=== PATIENT | female | born 1965 | race Two or more races ===

== ENCOUNTER 2017-08-04 10:55 | Emergency (ER) | payer BC ==
[2017-08-04 11:09] VITALS: BP 132/106
[2017-08-04] MEDS ORDERED: Ketorolac 60 MG/2 ML SDV IM ONE (11:19)
[2017-08-04] MEDS ORDERED: Diphtheria,Pertussis(Acell),Tetanus Vaccine 0.5 ML SDV IM ONE (11:19)
--- NOTE | 2017-08-04 11:25 | EDM.PDOC ---
ED HPI GENERAL MEDICAL PROBLEM - General Chief Complaint: Bite:Animal, Insect Stated Complaint: DOG BITE Time Seen by Provider: 08/04/17 11:09 Source of Information: Reports: Patient History Limitations: Reports: No Limitations - History of Present Illness INITIAL COMMENTS - FREE TEXT/NARRATIVE: 51-year-old female presents for evaluation treatment of injury to the right hand ventral middle finger. Injury occurred prior to arrival in the ER. Patient reports that she has a mixed breed dog which was about 15 pounds. Reports that she was trying to get a candy wrapper out of its mouth. States that it bit her right finger. Reports that the dog's immunizations are up to date. She applied a bandage applied pressure and the bleeding has now subsided. Reports significant pain to the right hand distal middle finger. No decreased range of motion, numbness or tingling. She is unsure of her last tetanus. Onset: Today Right Hand Pain Score (Numeric/FACES): 8 - Related Data Allergies Allergy/AdvReac Type Severity Reaction Status Date / Time iodine Allergy Anaphylactic Verified 08/04/17 11:04 Shock shellfish derived Allergy Anaphylactic Verified 08/04/17 11:04 Shock Home Meds: Home Meds Amoxicillin/Potassium Clav [Augmentin 875-125 Tablet] 1 each PO BID #20 tablet 08/04/17 [Rx] Past Medical History Musculoskeletal History: Reports: Neck Pain, Chronic Social & Family History - Tobacco Use Smoking Status *Q: Current Some Day Smoker Years of Tobacco use: 15 - Alcohol Use Days Per Week of Alcohol Use: 0 Number of Drinks Per Day: 0 Total Drinks Per Week: 0 - Recreational Drug Use Recreational Drug Use: No Drug Use in Last 12 Months: No ED ROS GENERAL - Review of Systems Review Of Systems: See Below Musculoskeletal: Reports: Hand Pain (right hand middle distal finger) Skin: Reports: Wound (right hand middle finger ) Neurological: Denies: Numbness ED EXAM, ANIMAL BITE - Physical Exam Exam: See Below Exam Limited By: No Limitations General Appearance: Alert, WD/WN, No Apparent Distress Respiratory/Chest: No Respiratory Distress Cardiovascular: Normal Peripheral Pulses Peripheral Pulses: 2+: Radial (L), Radial (R) Extremities: Normal Range of Motion, Other (tenderness to palpation of the right hand middle finger ) Neurological: Alert, Oriented, Normal Cognition Psychiatric: Normal Affect, Normal Mood Skin Exam: Normal Color, Warm/Dry, Other (approximately 1cm in diameter subcutaneousskin avulsion to the right hand ventral dorsal middle finger) Course - Vital Signs Last Recorded V/S: Last Vital Signs Temp 36.6 C 08/04/17 11:05 Pulse 72 08/04/17 11:05 Resp BP 132/106 H 08/04/17 11:05 Pulse Ox 100 08/04/17 11:05 - Orders/Labs/Meds Orders: Active Orders 24 hr Category Date Time Status Vaccines to be Administered [RC] PER UNIT ROUTINE Care 08/04/17 11:19 Ordered Meds: Medications Discontinued Medications Generic Name Dose Route Start Last Admin Trade Name Laverne PRN Reason Stop Dose Admin Diphtheria/Tetanus/Acell Pertussis 0.5 ml 08/04/17 11:19 Adacel IM 08/04/17 11:20 .ONCE ONE Ketorolac Tromethamine 60 mg 08/04/17 11:19 Toradol IM 08/04/17 11:20 ONETIME ONE - Re-Assessments/Exams Free Text/Narrative Re-Assessment/Exam: 08/04/17 11:21 Puncture wound to the right hand distal, ventral middle finger. Avulsion of the skin present. This wound is not suturable. I will start her on Augmentin. She is asking for pain medication. I will give her toradol. Also provide her with a splint to protect the wound and have nursing staff dress it. We will give her tetanus here. Nursing staff is reporting the dog bite. Discharge instructions as documented. Departure - Departure Time of Disposition: 11:22 Disposition: Home, Self-Care 01 Condition: Good Clinical Impression: Dog bite, Avulsion of skin of finger - Discharge Information Prescriptions: Amoxicillin/Potassium Clav [Augmentin 875-125 Tablet] 1 each PO BID #20 tablet Referrals: Corrine Marcos NP [Primary Care Provider] - Forms: ED Department Discharge Additional Instructions: [id number] Tylenol or Motrin as needed for pain. Keep the wound dressed. you may apply a topical antibacterial ointment such as Neosporin or bacitracin. you may also use Vaseline as you are on oral antibiotics. This will help with some of the pain by keeping it covered. Then apply a dressing and use the finger splint to help protect the wound. Follow-up with your primary care provider as needed. Augmentin 1 tablet twice a day for 10 days. Take this medication with food. Recommend doing yogurt or probiotic as this medication to be hard on the stomach and cause nausea, diarrhea and upset stomach. your tetanus was updated today. This is good for the next 10 years. Please return to the ER if your symptoms change or worsen. - My Orders Last 24 Hours: My Active Orders 08/04/17 11:19 Vaccines to be Administered [RC] PER UNIT ROUTINE - Assessment/Plan Last 24 Hours: My Active Orders 08/04/17 11:19 Vaccines to be Administered [RC] PER UNIT ROUTINE
== END 2017-08-04 11:42 | disposition home or self-care (01) ==
LOC: JD.ED 10:55
DX: S61.252A Open bite of right middle finger without damage to nail, initial encounter (principal); F17.210 Nicotine dependence, cigarettes, uncomplicated; Z91.013 Allergy to seafood; Z23 Encounter for immunization; W54.0XXA Bitten by dog, initial encounter
CPT/HCPCS: 90471; 90715; 96372; 99283; J1885

== ENCOUNTER 2019-04-10 07:24 | Day surgery (SDC) | payer OTHER ==
[~2019-04-10 07:24] MED LIST: Lactated Ringers 1,000 ML IV SCH; Lidocaine 1% 4 ML ONE; Lidocaine 1%/Sod Bicarbonate in NS 8.4% 1 ML Syringe IDERM PRN; Midazolam 1 MG/ML 2 ML SDV ONE; Ondansetron 4 MG/2 ML SDV ONE; Propofol 200 MG/20 ML SDV ONE; Rocuronium 50 MG/5 ML Vial ONE; Sodium Chloride 0.9% 10 ML Syringe FLUSH PRN; ceFAZolin 1 GM Vial ONE; fentaNYL 250 MCG/5 ML SDV ONE
--- NOTE | 2019-04-10 07:39 | PCM.PREANE ---
Preanesthetic Assessment - Anesthesia/Transfusion/Family Hx Anesthesia History: Prior Anesthesia Without Reaction Family History of Anesthesia Reaction: No Transfusion History: No Prior Transfusion(s) - Review of Systems General: No Symptoms Pulmonary: No Symptoms Cardiovascular: Dyspnea on Exertion Gastrointestinal: Abdominal Pain Neurological: No Symptoms Other: Reports: None - Physical Assessment NPO Status Date: 04/09/19 NPO Status Time: 00:00 Pulse: 74 O2 Sat by Pulse Oximetry: 96 Respiratory Rate: 16 Blood Pressure: 123/50 Temperature: 36.8 C Height: 1.57 m Weight: 79.379 kg ASA Class: 2 Mental Status: Alert & Oriented x3 Airway Class: Mallampati = 1 Dentition: Reports: Missing Tooth/Teeth, Caries Thyro-Mental Finger Breadths: 3 Mouth Opening Finger Breadths: 2 ROM/Head Extension: Limited/Partial Lungs: Clear to Auscultation, Normal Respiratory Effort Cardiovascular: Regular Rate, Regular Rhythm - Lab Values: on chart - Imaging/EKG Impressions: on chart - Allergies Allergies/Adverse Reactions: Allergies Allergy/AdvReac Type Severity Reaction Status Date / Time celecoxib Allergy Cannot Verified 04/09/19 15:18 Remember poison oak extract Allergy Cannot Verified 04/09/19 15:18 Remember shellfish derived Allergy Anaphylactic Verified 04/09/19 15:18 Shock - Blood Blood Available: Yes Product(s) Available: PRBC - Anesthesia Plan Pre-Op Medication Ordered: None - Acknowledgements Anesthesia Type Planned: General Anesthesia Pt an Appropriate Candidate for the Planned Anesthesia: Yes Alternatives and Risks of Anesthesia Discussed w Pt/Guardian: Yes Pt/Guardian Understands and Agrees with Anesthesia Plan: Yes PreAnesthesia Questionnaire HEENT History: Reports: Sinusitis Cardiovascular History: Reports: None Respiratory History: Reports: Bronchitis, Recurrent Gastrointestinal History: Reports: GERD, Other (See Below) Other Gastrointestinal History: abnormal LFTs Genitourinary History: Reports: None [employer] History: Reports: , Other (See Below) Other OB/BYN History: pelvic pain, cervical polyp, left and right breast mass, ovarian cyst, Musculoskeletal History: Reports: Back Pain, Chronic, Neck Pain, Chronic, Osteoarthritis Other Musculoskeletal History: left shoulder pain, muscle spasms, AC joint bone spurs, left shoulder adhesive capsulitis, left bicep tendintis, lumbago, sciatica, left should RC impingment, L RC tear, left shoulder surgery, right wrist repair Neurological History: Reports: Other (See Below) Other Neuro History: OA of neck with bulging discs, left upper extremity numbness Psychiatric History: Reports: None Endocrine/Metabolic History: Reports: Obesity/BMI 30+ Hematologic History: Reports: None Immunologic History: Reports: None Oncologic (Cancer) History: Reports: None Dermatologic History: Reports: Urticaria - Past Surgical History Head Surgeries/Procedures: Reports: None HEENT Surgical History: Reports: None Cardiovascular Surgical History: Reports: None Respiratory Surgical History: Reports: None GI Surgical History: Reports: None Endocrine Surgical History: Reports: None Neurological Surgical History: Reports: None Musculoskeletal Surgical History: Reports: Shoulder Surgery Dermatological Surgical History: Reports: None - SUBSTANCE USE Smoking Status *Q: Current Every Day Smoker Tobacco Use Within Last Twelve Months: Cigarettes Second Hand Smoke Exposure: No Days Per Week of Alcohol Use: 1 Number of Drinks Per Day: 1 Total Drinks Per Week: 1 Recreational Drug Use History: No - HOME MEDS Home Medications: Home Meds traMADol HCl [Tramadol HCl] 50 mg PO TID 04/09/19 [History] - CURRENT (IN HOUSE) MEDS Current Meds: Current Medications Lactated Ringer's (Ringers, Lactated) 1,000 mls @ 125 mls/hr IV ASDIRECTED LEA Stop: 04/10/19 23:00 Lidocaine/Sodium Bicarbonate (Buffered Lidocaine 1% In Ns 8.4%) 0.25 ml IDERM ONETIME PRN PRN Reason: Prior to IV Start Stop: 04/10/19 18:00 Sodium Chloride (Saline Flush) 10 ml FLUSH ASDIRECTED PRN PRN Reason: Keep Vein Open Stop: 04/10/19 18:00 Discontinued Medications Cefazolin Sodium (Ancef) Confirm Administered Dose 2 gm .ROUTE .STK-MED ONE Stop: 04/10/19 07:23 Fentanyl (Sublimaze) Confirm Administered Dose 250 mcg .ROUTE .STK-MED ONE Stop: 04/10/19 07:17 Lactated Ringer's (Ringers, Lactated) 1,000 mls @ 125 mls/hr IV ASDIRECTED LEA Stop: 03/17/19 23:00 Lidocaine HCl (Xylocaine-Mpf 1%) Confirm Administered Dose 4 mls @ as directed .ROUTE .STK-MED ONE Stop: 04/10/19 07:17 Lidocaine/Sodium Bicarbonate (Buffered Lidocaine 1% In Ns 8.4%) 0.25 ml IDERM ONETIME PRN PRN Reason: Prior to IV Start Stop: 03/17/19 18:00 Midazolam HCl (Versed 1 Mg/Ml) Confirm Administered Dose 2 mg .ROUTE .STK-MED ONE Stop: 04/10/19 07:17 Ondansetron HCl (Zofran) Confirm Administered Dose 4 mg .ROUTE .STK-MED ONE Stop: 04/10/19 07:16 Propofol (Diprivan 20 Ml) Confirm Administered Dose 200 mg .ROUTE .STK-MED ONE Stop: 04/10/19 07:17 Rocuronium [place] (Zemuron) Confirm Administered Dose 50 mg .ROUTE .STK-MED ONE Stop: 04/10/19 07:16 Sodium Chloride (Saline Flush) 10 ml FLUSH ASDIRECTED PRN PRN Reason: Keep Vein Open Stop: 03/17/19 18:00
[2019-04-10] MEDS ORDERED: Bupivacaine 0.5% 30 ML SDV ONE (07:54)
[2019-04-10] MEDS ORDERED: Lidocaine 1% with EPINEPHrine 1:100,000 20 ML MDV ONE ×2 (07:54→12:50)
[2019-04-10] MEDS ORDERED: Sodium Chloride 0.9% 50 ML SDV ONE (07:54)
[2019-04-10] MEDS ORDERED: Lactated Ringers 1,000 ML ONE ×2 (08:30→09:34)
[2019-04-10] MEDS ORDERED: Dexamethasone 4 MG/ML 5 ML MDV ONE ×2 (08:40→08:41)
[2019-04-10] MEDS ORDERED: HYDROmorphone 0.5 MG/0.5 ML Syringe ONE ×2 (08:42)
[2019-04-10] MEDS ORDERED: fentaNYL 250 MCG/5 ML SDV ONE (08:50)
[2019-04-10] MEDS ORDERED: Ketorolac 30 MG/ML SDV ONE (09:34)
--- NOTE | 2019-04-10 10:49 | PCM.POSTAN ---
POST ANESTHESIA ASSESSMENT - MENTAL STATUS Mental Status: Alert, Oriented - VITAL SIGNS Pulse Rate: 86 SaO2: 98 Resp Rate: 15 Blood Pressure: 107/84 Temperature: 36.7 C - RESPIRATORY Respiratory Status: Respiratory Rate WNL, Airway Patent, O2 Saturation Stable, Supplemental Oxygen - CARDIOVASCULAR CV Status: Pulse Rate WNL, Blood Pressure Stable - GASTROINTESTINAL GI Status: No Symptoms - PAIN Pain Score: 2 - POST OP HYDRATION Hydration Status: Adequate & Stable - OBSERVATIONS Free Text/Narrative:: no anesthesia complications noted
--- NOTE | 2019-04-10 10:59 | PCM.OPNOTE ---
- General Post-Op/Procedure Note Date of Surgery/Procedure: 04/10/19 Operative Procedure(s): Laparoscopic-assisted vaginal hysterectomy, bilateral salpingo-oophorectomy, tension-free transvaginal mid urethral sling and cystoscopy. Findings: Retroverted uterus that is overall normal in appearance. Fallopian tubes normal in appearance bilaterally. Left ovary atrophic but otherwise normal in appearance. Right ovary with blue-black ovarian cyst measuring approximately 2 cm in size. The remainder of the ovary was overall normal. The visualized portions of the intestines, liver and gallbladder were normal. Pre Op Diagnosis: Female pelvic pain, abnormal uterine bleeding, fibroid uterus and stress urinary incontinence Post-Op Diagnosis: Same Anesthesia Technique: General ET Tube Primary Surgeon: Heber Burgos Anesthesia Provider: Patrick Cm Revising Clerk: Bubba Newell Revising Clerk: German Gary (PA student) Reason Revising Clerk Was Necessary: Patient's safety and reduction of morbidity and mortality Role of Revising Clerk: Laparoscopic skills for the surgery and retraction for visualization Pathology: Cervix, uterus, bilateral fallopian tubes and bilateral ovaries Fluid Replacement, Intraop: 2,000 Output, Urine Amount: 200 EBL in mLs: 100 Complications: None Condition: Good Free Text/Narrative:: Length of procedure: 96 minutes Procedure in detail: The patient was seen in the preoperative holding area and risks, benefits, indications, and alternatives of the procedure were reviewed with the patient and she desired to proceed with a laparoscopic assisted vaginal hysterectomy, bilateral salpingectomy, possible unilateral or bilateral salpingo-oophorectomy, transvaginal mid-urethral sling and possible total abdominal hysterectomy. Consents were reviewed. The patient was taken back to the OR and given general anesthesia with an endotracheal tube which was placed without difficulty. She was placed in dorsal lithotomy position using Yellofin stirrups. She was prepped and draped in normal sterile fashion. A Jean catheter was placed without difficulty. Attention was then turned to her umbilicus and was injected with 0.5% Marcaine and a 5 mm stab incision was made with a scalpel and a Veress needle was then inserted through the incision. The gas was turned on, with an opening pressure of 6 mmHg. Pneumoperitoneum was continued until 15 mmHg pressure. A 5 mm trocar was then inserted under direct visualization through the incision without difficulty. Attention was then turned to the patient's right lower quadrant where an avascular space approximately snf between the ASIS and the umbilicus was identified. Local anesthetic was injected and a 5 mm incision was made with a scalpel. A 5 mm trocar was then inserted under direct visualization of the laparoscope. Attention was then turned to the left lower quadrant, where again an avascular portion of the abdominal wall was identified approximately snf between the ASIS and the umbilicus. Local anesthetic was injected and a scalpel was used to make a 5 mm incision. A 5 mm trocar was inserted under direct visualization with the laparoscope. Attention was then turned to the pelvis where the uterus was visualized and noted be normal in appearance with normal appearing bilateral fallopian tubes and normal-appearing left ovary. The right ovary was noted to have a blueblack cyst present within the ovary approximately 2 cm in size The atraumatic grasper was then removed from the right lower trocar and a Enseal vessel sealing device was introduced and was used to transect the left infundibulopelvic ligament. The remainder of the IP ligament was cauterized and transected using the Enseal vessel sealing device. The left round ligament was then transected using the Enseal vessel sealing device. The left side of the uterus and broad ligament were then transected using the Enseal vessel sealing device until the level of the uterovesical peritoneal reflection. This was repeated on the patient's right side. The right infundibulopelvic ligament was cauterized and transected the Enseal vessel sealing device. The remainder of the infundibulum pelvic ligament was then transected using Enseal vessel sealing device. The right round ligament was transected using Enseal vessel sealing device and the broad ligament was transected to the level of the uterovesical peritoneal reflection. The pelvis was then inspected for hemostasis at this time and hemostasis was noted. All instruments were removed from the abdomen. Attention was then turned to the patient's perineum where a weighted speculum was placed into the vagina and a Pooler retractor was used to visualize the cervix. The cervix was grasped with a double-tooth tenaculum. The cervical reflection point was then injected circumferentially with 0.25% lidocaine with epinephrine. The cervix was then circumferentially incised with a scalpel. The bladder was then dissected off the pubovesical cervical fascia anteriorly with Metzenbaum scissors. The same procedure was performed posteriorly and the posterior cul-de-sac was entered sharply without difficulty using Metzenbaum scissors. At this point, an Enseal vessel sealing device was placed over the uterosacral ligaments on the patient's left side. These were cauterized and ligated with the device. This was repeated on the patient's right side. Hemostasis was assured. The cardinal ligaments were then clamped on both sides using the Enseal vessel sealing device, cauterized and transected with the device. The uterine artery on the patient's right side side and the remainder of the broad ligament were then serially clamped with the Enseal vessel sealing device, cauterized and transected with the device. Excellent hemostasis was noted. The cervix and uterus was able to be delivered at this time. The posterior vaginal cuff was closed with running locked sutures of 0 Monocryl. There is noted be bleeding from the uterine veins on the patient's left side that were cauterized using the Enseal vessel sealing device. Hemostasis was assured at this time. The vaginal cuff was then closed in a horizontal fashion using running locked sutures with 0 Monocryl suture. All instruments were removed from the vagina. Attention was then turned to the abdomen where a laparoscope was inserted and was used to check for hemostasis. Hemostasis was noted at this time. Attention was again turned to the pelvis and an Allis clamp was placed approximately 2 cm below the urethral opening. A second Allis clamp was placed 2 cm below the first Allis clamp. The vaginal mucosa was then injected with 0.25% lidocaine with epinephrine. A scalpel was used to make a midline incision through the vaginal mucosa. Marquez scissors were used to dissect the vaginal mucosa from the underlying tissue on the patient's right side. This was carried out to the pubic rami. This was repeated on the left side and completed without difficulty. Attention was then turned to the patient's mons and the skin was injected with 0.25% lidocaine with epinephrine and bilateral sides up proximally 2 cm from midline. A stab incision was made with a scalpel bilateral sides without complications. The urethral sling hook was then used on the patient's left side and placed through the stab incision and with a finger in the vagina behind the pubic rami, the tip of the hook was felt and then directed out through the midline vaginal incision. The transvaginal tape was attached to the hook and pulled through the incision. Attention was then turned to the patient's right side where, again, the transobturator pigtail hook was placed through the stab incision and with a finger in the vagina was directed posterior to the lateral pubic rami and directed through the vaginal incision. The other end of the tape was attached to the hook and pulled through , making sure that the tape was flat on the patient's incision. A cystoscopy was performed that did not show any damage to the bladder. Bilateral urine effluxed from the ureters was noted. A Marquez scissors was used to allow for a tension-free placement of the tape. The ends of the tape were then cut at the level of the skin on the patient on both sides at the stab incisions. Attention was then turned to the midline incision, which was closed using 3-0 Monocryl in a running fashion. The skin incisions were closed using Dermabond glue. The case was complete at this time. The gas was evacuated from the peritoneum and trocars removed. The laparoscopic port sites were closed using 4-0 Monocryl suture and Dermabond. The patient was awoken from general anesthesia and taken to the PACU for recovery in stable condition. She will be discharged to home once she is able to meet all postoperative milestones including tolerating small amount of oral intake and liquids, ambulate without difficulty, her pain controlled with oral medications and able to void without difficulty. She will follow-up in the clinic in 2 weeks or earlier as needed. Sponge, lap, needle, and instrument counts were correct x 2. Review of images from case [id number]: Error image IMG 002: Error image IMG 003: Grossly normal-appearing visualized portion of the liver edge and gallbladder IMG 004: Grossly normal-appearing liver edge and portion of stomach IMG 005: Hemostatic portion of the left pelvis and cul-de-sac IMG 006: Hemostatic portion of the right pelvis and cul-de-sac Heber Burgos M.D. 10:58 AM 04/10/2019
[2019-04-10] MEDS: fentaNYL 100 MCG/2 ML SDV IVPUSH PRN ×2 (11:07→14:43)
[2019-04-10] MEDS: HYDROmorphone 0.5 MG/0.5 ML Syringe IVPUSH PRN ×2 (11:16→14:24)
[2019-04-10] MEDS ORDERED: Acetaminophen/oxyCODONE 325-5 MG Tab PO PRN (11:45)
[2019-04-10] MEDS ORDERED: LORazepam 2 MG/ML SDV IVPUSH ONE (14:18)
--- NOTE | 2019-04-10 15:11 | PCM48HPAN ---
Post Anesthesia Note - EVALUATION WITHIN 48HRS OF ANESTHETIC Vital Signs in Normal Range: Yes Patient Participated in Evaluation: Yes Respiratory Function Stable: Yes Airway Patent: Yes Cardiovascular Function Stable: Yes Hydration Status Stable: Yes Pain Control Satisfactory: Yes (IV pain meds ordered 03/06) Nausea and Vomiting Control Satisfactory: Yes Mental Status Recovered: Yes - COMMENTS/OBSERVATIONS Free Text/Narrative:: no anesthesia complications noted
[2019-04-10] MEDS: Ketorolac 30 MG/ML SDV IVPUSH SCH ×2 (16:19→21:19)
[2019-04-10] MEDS ORDERED: Albuterol 0.083% 2.5 MG/3 ML Neb Soln NEB ONE (16:36)
[2019-04-10] MEDS: Acetaminophen/oxyCODONE 325-5 MG Tab PO PRN (19:05)
[2019-04-11] MEDS: Acetaminophen/oxyCODONE 325-5 MG Tab PO PRN (00:31)
[2019-04-11] MEDS ORDERED: Ibuprofen 600 MG Tab PO ONE (04:30)
[2019-04-11 06:05] VITALS: BP 95/65
--- NOTE | 2019-04-11 09:12 | PCM.SN ---
- Free Text/Narrative Note: Patient was discharged prior to my evaluation in the morning of postoperative day #1. Per nurse's report the patient was doing well without any concerns. She had taken pain medication including Percocet and ibuprofen and desired to be discharged. Patient not evaluated in the morning of postoperative day #1. Heber Burgos M.D. 9:12 AM 04/11/2019
== END 2019-04-11 06:47 | disposition home or self-care (01) ==
LOC: JD.SDS 07:24 → JD.MS 17:08 → JD.SDS 04-11 06:47
PROVIDERS: ATTEND Obstetrics & Gynecology
DX: D25.2 Subserosal leiomyoma of uterus (principal); N80.0 Endometriosis of uterus; N73.6 Female pelvic peritoneal adhesions (postinfective); N39.3 Stress incontinence (female) (male); M47.9 Spondylosis, unspecified; M50.80 Other cervical disc disorders, unspecified cervical region; M54.32 Sciatica, left side; K21.9 Gastro-esophageal reflux disease without esophagitis; F17.210 Nicotine dependence, cigarettes, uncomplicated; E66.9 Obesity, unspecified; Z68.31 Body mass index [BMI] 31.0-31.9, adult; Z91.013 Allergy to seafood; Z88.8 Allergy status to other drugs, medicaments and biological substances; Z91.048 Other nonmedicinal substance allergy status
CPT/HCPCS: 36415; 57288; 58552; 81025; 86850; 86900; 86901; 94640; A9270; C1771; J0690; J1100; J1170; J1885; J2001; J2060; J2250; J2405; J2704; J3010; J3490; J7120; 00944

== ENCOUNTER 2021-10-02 09:49 | Emergency (ER) | payer OTHER ==
[2021-10-02 10:11] VITALS: BP 117/68; PULSE 80
[2021-10-02] MEDS ORDERED: Sodium Chloride 0.9% 10 ML Syringe FLUSH PRN ×2 (11:02→12:59)
--- NOTE | 2021-10-02 11:30 | CR ---
Chest: Portable view of the chest was obtained. Comparison: Prior chest x-ray of 03/10/19. Heart is slightly enlarged. Pulmonary vessels are increased. Bony structures show nothing acute. Prior left shoulder surgery is seen. Probable cholecystectomy is present. Impression: 1. Findings suspicious for CHF. 2. Other findings believed to be incidental as noted above. Diagnostic code #3
--- NOTE | 2021-10-02 12:05 | EDM.PDOC ---
ED HPI GENERAL MEDICAL PROBLEM - General Chief Complaint: Respiratory Problem Stated Complaint: SOB Time Seen by Provider: 10/02/21 11:02 Source of Information: Reports: Patient, RN Notes Reviewed History Limitations: Reports: No Limitations - History of Present Illness INITIAL COMMENTS - FREE TEXT/NARRATIVE: Patient is a 56-year-old female presenting to the emergency department with complaints of pain below her right breast with inspiration. Pain has been present for approximately 5 days. She denies feeling significantly shortness of breath, however states it is painful to take a deep breath, so she feels limited by this. She does not feel that the area is tender to palpation. It does not hurt with movement. Patient is 2 weeks postop for spinal fusion. Denies any pain or swelling in her lower extremities. Denies any history of blood clots. She is not on anticoagulation. Right Lower Chest Pain Score (Numeric/FACES): 10 - Related Data Allergies Allergy/AdvReac Type Severity Reaction Status Date / Time celecoxib Allergy Cannot Verified 04/09/19 15:18 Remember fentanyl Allergy Anaphylactic Verified 10/02/21 10:07 Shock poison oak extract Allergy Cannot Verified 04/09/19 15:18 Remember shellfish derived Allergy Anaphylactic Verified 04/09/19 15:18 Shock Home Meds: Home Meds Docusate Sodium [Colace] 100 mg PO BID #60 capsule 04/10/19 [Rx] Multivitamin [Multi-Vitamin Daily] 1 tab PO DAILY 04/10/19 [History] Acetaminophen/HYDROcodone [Arnett 325-5 MG] 1 - 2 tab PO Q6H PRN #20 tablet NS 04/13/19 [Rx] Cyclobenzaprine [Flexeril] 5 mg PO TID PRN 10/02/21 [History] Hydrocodone/Acetaminophen [Hydrocodone-Acetamin 5-325 mg] 1 each PO Q4H PRN #12 tablet 10/02/21 [Rx] Naproxen [Naprosyn] 500 mg PO Q12HR 5 Days #10 tab 10/02/21 [Rx] Past Medical History HEENT History: Reports: Sinusitis Cardiovascular History: Reports: None Respiratory History: Reports: Bronchitis, Recurrent Gastrointestinal History: Reports: GERD, Other (See Below) Other Gastrointestinal History: abnormal LFTs Genitourinary History: Reports: None ICE CREAM MIXER History: Reports: , Other (See Below) Other ICE CREAM MIXER History: pelvic pain, cervical polyp, left and right breast mass, ovarian cyst, Musculoskeletal History: Reports: Back Pain, Chronic, Neck Pain, Chronic, Osteoarthritis Other Musculoskeletal History: left shoulder pain, muscle spasms, AC joint bone spurs, left shoulder adhesive capsulitis, left bicep tendintis, lumbago, sciatica, left should RC impingment, L RC tear, left shoulder surgery, right wrist repair Neurological History: Reports: Other (See Below) Other Neuro History: OA of neck with bulging discs, left upper extremity numbness Psychiatric History: Reports: None Endocrine/Metabolic History: Reports: Obesity/BMI 30+ Hematologic History: Reports: None Immunologic History: Reports: None Oncologic (Cancer) History: Reports: None Dermatologic History: Reports: Urticaria - Past Surgical History Head Surgeries/Procedures: Reports: None HEENT Surgical History: Reports: None Cardiovascular Surgical History: Reports: None Respiratory Surgical History: Reports: None GI Surgical History: Reports: None Endocrine Surgical History: Reports: None Neurological Surgical History: Reports: None Musculoskeletal Surgical History: Reports: Shoulder Surgery Dermatological Surgical History: Reports: None Social & Family History - Tobacco Use Tobacco Use Status *Q: Former Tobacco User Used Tobacco, but Quit: Yes Month/Year Tobacco Last Used: 05/2021 Second Hand Smoke Exposure: No - Caffeine Use Caffeine Use: Reports: Coffee - Alcohol Use Days Per Week of Alcohol Use: 1 Number of Drinks Per Day: 2 Total Drinks Per Week: 2 - Recreational Drug Use Recreational Drug Use: No ED ROS GENERAL - Review of Systems Review Of Systems: Comprehensive ROS is negative, except as noted in HPI. ED EXAM, GENERAL - Physical Exam Exam: See Below General Appearance: Alert, WD/WN, No Apparent Distress Respiratory/Chest: No Respiratory Distress, Lungs Clear, Normal Breath Sounds, No Accessory Muscle Use, Other (tenderness to palpation to the anterior chest wall below the right breast) Cardiovascular: Normal Peripheral Pulses, Regular Rate, Rhythm, No Edema, No Gallop, No JVD, No Murmur, No Rub GI/Abdominal: Normal Bowel Sounds, Soft, Non-Tender, No Organomegaly, No Distention, No Abnormal Bruit, No Mass Neurological: Alert, Oriented, Normal Cognition, Normal Gait, No Motor/Sensory Deficits Psychiatric: Normal Affect, Normal Mood Skin Exam: Warm, Dry, Intact, Normal Color, No Rash #1 Interpretation EKG Date: 10/02/21 Time: 01:15 Rhythm: NSR Rate (Beats/Min): 64 [place]: RAD-Right [place] Deviation (borderline) P-Wave: Present QRS: Normal ST-T: Normal QT: Normal EKG Interpretation Comments: left atrial enlargement. Late transition Course - Vital Signs Last Recorded V/S: Last Vital Signs Temp 97.5 F 10/02/21 10:07 Pulse 80 10/02/21 10:07 Resp 22 H 10/02/21 10:07 BP 117/68 10/02/21 10:07 Pulse Ox 99 10/02/21 10:07 - Orders/Labs/Meds Labs: Laboratory Tests 10/02/21 10/02/21 10/02/21 Range/Units 11:52 11:52 11:52 WBC 8.79 (3.98-10.04) K/mm3 RBC 4.68 (3.98-5.22) M/mm3 Hgb 13.5 (11.2-15.7) gm/dl Hct 42.7 (34.1-44.9) % MCV 91.2 (79.4-94.8) fl MCH 28.8 (25.6-32.2) pg MCHC 31.6 L (32.2-35.5) g/dl RDW Std Deviation 44.1 (36.4-46.3) fL Plt Count 374 H (182-369) K/mm3 MPV 11.3 (9.4-12.3) fl Neut % (Auto) 38.4 (34.0-71.1) % Lymph % (Auto) 39.4 (19.3-51.7) % Foster % (Auto) 8.1 (4.7-12.5) % Eos % (Auto) 12.4 H (0.7-5.8) Baso % (Auto) 1.5 H (0.1-1.2) % Neut # (Auto) 3.38 (1.56-6.13) K/mm3 Lymph # (Auto) 3.46 (1.18-3.74) K/mm3 Foster # (Auto) 0.71 H (0.24-0.36) K/mm3 Eos # (Auto) 1.09 H (0.04-0.36) K/mm3 Baso # (Auto) 0.13 H (0.01-0.08) K/mm3 D-Dimer, Quantitative 2.86 H (0.19-0.50) mg/L Sodium 139 (136-145) mEq/L Potassium 4.7 (3.5-5.1) mEq/L Chloride 104 (98-107) mEq/L Carbon Dioxide 25 (21-32) mEq/L Anion Gap 14.7 (5-15) BUN 13 (7-18) mg/dL Creatinine 0.5 L (0.55-1.02) mg/dL Est Cr Clr Drug Dosing 98.18 mL/min Estimated GFR (MDRD) > 60 (>60) mL/min BUN/Creatinine Ratio 26.0 H (14-18) Glucose 101 H (70-99) mg/dL Calcium 9.2 (8.5-10.1) mg/dL Total Bilirubin 0.2 (0.2-1.0) mg/dL AST 29 (15-37) U/L ALT 47 (14-59) U/L Alkaline Phosphatase 213 H (46-116) U/L Troponin I < 0.017 (0.00-0.056) ng/mL C-Reactive Protein 0.9 (<1.0) mg/dL NT-Pro-B Natriuret Pep (0-125) pg/mL Total Protein 9.3 H (6.4-8.2) g/dl Albumin 3.5 (3.4-5.0) g/dl Globulin 5.8 gm/dL Albumin/Globulin Ratio 0.6 L (1-2) SARS-CoV-2 RNA (GINNY) (NEGATIVE) 10/02/21 10/02/21 Range/Units 11:52 12:25 WBC (3.98-10.04) K/mm3 RBC (3.98-5.22) M/mm3 Hgb (11.2-15.7) gm/dl Hct (34.1-44.9) % MCV (79.4-94.8) fl MCH (25.6-32.2) pg MCHC (32.2-35.5) g/dl RDW Std Deviation (36.4-46.3) fL Plt Count (182-369) K/mm3 MPV (9.4-12.3) fl Neut % (Auto) (34.0-71.1) % Lymph % (Auto) (19.3-51.7) % Foster % (Auto) (4.7-12.5) % Eos % (Auto) (0.7-5.8) Baso % (Auto) (0.1-1.2) % Neut # (Auto) (1.56-6.13) K/mm3 Lymph # (Auto) (1.18-3.74) K/mm3 Foster # (Auto) (0.24-0.36) K/mm3 Eos # (Auto) (0.04-0.36) K/mm3 Baso # (Auto) (0.01-0.08) K/mm3 D-Dimer, Quantitative (0.19-0.50) mg/L Sodium (136-145) mEq/L Potassium (3.5-5.1) mEq/L Chloride (98-107) mEq/L Carbon Dioxide (21-32) mEq/L Anion Gap (5-15) BUN (7-18) mg/dL Creatinine (0.55-1.02) mg/dL Est Cr Clr Drug Dosing mL/min Estimated GFR (MDRD) (>60) mL/min BUN/Creatinine Ratio (14-18) Glucose (70-99) mg/dL Calcium (8.5-10.1) mg/dL Total Bilirubin (0.2-1.0) mg/dL AST (15-37) U/L ALT (14-59) U/L Alkaline Phosphatase (46-116) U/L Troponin I (0.00-0.056) ng/mL C-Reactive Protein (<1.0) mg/dL NT-Pro-B Natriuret Pep 71 (0-125) pg/mL Total Protein (6.4-8.2) g/dl Albumin (3.4-5.0) g/dl Globulin gm/dL Albumin/Globulin Ratio (1-2) SARS-CoV-2 RNA (GINNY) Negative (NEGATIVE) Meds: Medications Discontinued Medications Generic Name Dose Route Start Last Admin Trade Name Freq PRN Reason Stop Dose Admin Sodium Chloride 100 mls @ 75 mls/hr 10/02/21 13:00 10/02/21 13:14 Normal Saline IV 75 mls/hr ASDIRECTED LEA Administration Iopamidol 100 ml 10/02/21 12:59 10/02/21 13:14 Iopamidol 755 Mg/Ml 100 Ml Bottle IVPUSH 10/02/21 13:00 100 ml ONETIME ONE Administration Sodium Chloride 10 ml 10/02/21 11:02 10/02/21 12:03 Sodium Chloride 0.9% 10 Ml Syringe FLUSH 10 ml ASDIRECTED PRN Administration Keep Vein Open Sodium Chloride 10 ml 10/02/21 12:59 10/02/21 13:14 Sodium Chloride 0.9% 10 Ml Syringe FLUSH 10 ml ONETIME PRN Administration IV FLUSH - Re-Assessments/Exams Free Text/Narrative Re-Assessment/Exam: 10/02/21 12:58 Hematology significant for D-dimer elevated 2.86. Otherwise unremarkable. Troponin is undetectably low. This elevation in her D-dimer may be related to her recent surgery, however given her pleuritic chest pain, I have ordered a CT angiogram of the chest to rule out PE. Chest x-ray shows findings suspicious for CHF. proBNP is pending. Patient reports she has had IV contrast in the past and tolerated it well. 10/02/21 14:18 CT angiogram the chest impression as follows: 1. Mild adenopathy within the subcarinal region within the right hilum. Etiology is uncertain. Recommend follow-up contrast CT study in 3 to 4 months to hopefully show stability. 2. No findings of pulmonary embolism. 3. Findings remain suspicious for CHF. Patient's proBNP is normal at 71. She is not hypoxic. Results discussed with patient. Would like her to follow-up with her primary care provider tomorrow or the next day. In the meantime, we will put her on Naprosyn and provide additional prescription for hydrocodone with Tylenol she states she is due for refill tomorrow. She has Flexeril at home. Recommend that she take this every 8 hours to see if it helps with symptoms. Discussed return precautions. Discharge instructions as documented. Departure - Departure Time of Disposition: 14:12 Disposition: Home, Self-Care 01 Condition: Good Clinical Impression: Pain of anterior chest wall with respiration - Discharge Information *PRESCRIPTION DRUG MONITORING PROGRAM REVIEWED*: Yes *COPY OF PRESCRIPTION DRUG MONITORING REPORT IN PATIENT SANDRA: No Prescriptions: Hydrocodone/Acetaminophen [Hydrocodone-Acetamin 5-325 mg] 1 each PO Q4H PRN #12 tablet PRN Reason: Pain Naproxen [Naprosyn] 500 mg PO Q12HR 5 Days #10 tab Instructions: Chest Wall Pain Referrals: Vanita Hernandez DIRECTOR DIETETICS DEPARTMENT [Primary Care Provider] - Forms: ED Department Discharge Additional Instructions: Take the Naprosyn routinely as prescribed. Take your Flexeril every 8 hours. Use hydrocodone with Tylenol as needed for pain not relieved by Naprosyn. Follow-up with your primary care provider tomorrow or the next day to ensure symptoms are improving and to discuss possible echocardiogram. Return to ER for any new or worsening symptoms. Sepsis Event Note (ED) - Evaluation Sepsis Screening Result: No Definite Risk
[2021-10-02] MEDS ORDERED: Iopamidol 755 Mg/ML 100 ML Bottle IVPUSH ONE (12:59)
[2021-10-02] MEDS ORDERED: Sodium Chloride 0.9% 100 ML IV SCH (13:00)
--- NOTE | 2021-10-02 13:38 | CT ---
CT chest Technique: Multiple axial sections through the chest were obtained. Intravenous contrast was utilized. Study has been performed as a pulmonary angiogram protocol. Comparison: No prior chest CT is available, prior chest x-ray performed earlier on the same day (11:08 AM). Findings: Thoracic aorta shows no aneurysm. Pulmonary arteries are opacified and show no filling defects to indicate pulmonary embolism. Enlarged right hilar lymph node is seen. Multiple small lymph nodes are seen within the mediastinum which measure within normal limits. There is felt to be slight adenopathy within the subcarinal region. Lymph node within the subcarinal region measures approximately 2.5 cm. Heart is enlarged. Small pericardial effusion is seen within the dependent portion of the pericardium. Visualized upper abdominal structures show nothing acute. Hazy interstitial density is seen within the chest most likely representing slight pulmonary vascular congestion. Mild dependent atelectasis is seen within both lung bases. Impression: 1. Mild adenopathy within the subcarinal region and within the right hilum. Etiology is uncertain. Recommend follow-up contrast CT study in 3-4 months to hopefully show stability. 2. No findings of pulmonary embolism. 3. Findings remain suspicious for CHF. Diagnostic code #3
== END 2021-10-02 14:24 | disposition home or self-care (01) ==
LOC: JD.ED 09:49
DX: R07.89 Other chest pain (principal); E66.9 Obesity, unspecified; Z68.29 Body mass index [BMI] 29.0-29.9, adult; Z88.8 Allergy status to other drugs, medicaments and biological substances; Z88.4 Allergy status to anesthetic agent; Z91.048 Other nonmedicinal substance allergy status; Z91.013 Allergy to seafood; Z87.891 Personal history of nicotine dependence; Z20.822 Contact with and (suspected) exposure to COVID-19
CPT/HCPCS: 36415; 71045; 71275; 80053; 83880; 84484; 85025; 85379; 86140; 87635; 93005; 99285; Q9967; U0002

== ENCOUNTER → 2022-03-22 | Day surgery (SDC) | payer OTHER ==
[~2022-03-22] MED LIST changes: -Lidocaine 1% 4 ML ONE; -Midazolam 1 MG/ML 2 ML SDV ONE; -Ondansetron 4 MG/2 ML SDV ONE; -Propofol 200 MG/20 ML SDV ONE; -Rocuronium 50 MG/5 ML Vial ONE; +Sodium Chloride 0.9% 10 ML Syringe FLUSH SCH; -ceFAZolin 1 GM Vial ONE; -fentaNYL 250 MCG/5 ML SDV ONE
[2022-03-22 11:26] VITALS: BP 118/56; PULSE 60
== END | disposition home or self-care (01) ==
LOC: JD.SDS 08:44
PROVIDERS: ATTEND Surgery
DX: R19.5 Other fecal abnormalities (principal); Z80.0 Family history of malignant neoplasm of digestive organs; Z53.09 Procedure and treatment not carried out because of other contraindication; E78.2 Mixed hyperlipidemia; Z88.8 Allergy status to other drugs, medicaments and biological substances; Z91.013 Allergy to seafood; Z88.5 Allergy status to narcotic agent; Z79.899 Other long term (current) drug therapy; Z98.890 Other specified postprocedural states; Z87.891 Personal history of nicotine dependence
CPT/HCPCS: J7120

== ENCOUNTER 2023-01-27 13:43 | Emergency (ER) | payer OTHER ==
[2023-01-27 13:55] VITALS: BP 137/59; PULSE 79
[2023-01-27] MEDS ORDERED: Ketorolac 60 MG/2 ML SDV IM ONE (14:21)
== END 2023-01-27 16:07 | disposition home or self-care (01) ==
LOC: JD.ED 13:43
DX: M25.562 Pain in left knee (principal); E66.9 Obesity, unspecified; Z68.29 Body mass index [BMI] 29.0-29.9, adult; Z87.891 Personal history of nicotine dependence; Z88.6 Allergy status to analgesic agent; Z91.013 Allergy to seafood; Z88.1 Allergy status to other antibiotic agents; Z91.041 Radiographic dye allergy status; Z91.048 Other nonmedicinal substance allergy status; Z79.899 Other long term (current) drug therapy
CPT/HCPCS: 73562; 96372; 99283; J1885

== ENCOUNTER 2025-03-14 10:14 | Emergency (ER) | payer OTHER ==
[2025-03-14 14:12] VITALS: BP 116/52; PULSE 67
== END 2025-03-14 11:30 | disposition home or self-care (01) ==
LOC: JD.ED 10:14
DX: K64.9 Unspecified hemorrhoids (principal); Z86.16 Personal history of COVID-19; Z88.5 Allergy status to narcotic agent; Z91.013 Allergy to seafood; Z91.048 Other nonmedicinal substance allergy status; Z79.899 Other long term (current) drug therapy
CPT/HCPCS: 74018; 74018-26; 99283; 99284